=== PATIENT | male | born 1995 | race Caucasian/White ===

== ENCOUNTER 2018-11-30 23:57 | Inpatient (IN) | payer OTHER ==
[~2018-11-30] VITALS: Ht 208.3 cm; Wt 76.2 kg
[2018-12-01] VITALS (7 sets, daily range): BP systolic 119–127; BP diastolic 62–88
[2018-12-01] MEDS ORDERED: OCTREOTIDE ACETATE 50 MCG/ML 1ML IV STA (00:59)
[2018-12-01] MEDS ORDERED: OCTREOTIDE 1,000 MCG in SODIUM CHLORIDE 0.9% 100 ML IV STA (00:59)
[2018-12-01] MEDS ORDERED: PANTOPRAZOLE SODIUM 40 MG/VIAL IV STA (00:59)
[2018-12-01] MEDS ORDERED: SODIUM CHLORIDE 0.9% 1,000 ML IV ONE (00:59)
[2018-12-01] MEDS ORDERED: ONDANSETRON HCL 4MG/2ML INJ IV ONE (01:00)
[2018-12-01 01:34] LABS: BASOPHILS % 0.5 % (0.0-2.0); CHLORIDE 104 mEq/L (98-107); EOSINOPHILS % 3.3 % (0.0-5.0); HEMATOCRIT. 48.7 % (42.0-52.0); HEMOGLOBIN. 16.9 g/dL (14.0-18.0); MEAN CORPUSCULAR HEMOGLOBIN 30.6 pg (28.0-32.0); MEAN CORPUSCULAR VOLUME 88.2 fL (80.0-94.0); MEAN PLATELET VOLUME 8.1 fl (7.4-10.4); MONOCYTES % 5.6 % (2.0-8.0); NEUTROPHILS % 38.6 % (40.0-76.0); PLATELET 261 x1000/uL (130-400); RED BLOOD CELL COUNT 5.53 mill/uL (4.7-6.1); RED CELL DISTRIBUTION WIDTH 13.2 % (11.6-14.6)
[2018-12-01 01:40] LABS: INR 1.1; PROTHROMBIN TIME 10.7 sec (9.1-11.1)
[2018-12-01] MEDS ORDERED: HYDROMORPHONE HCL/PF 2MG/ML CPJ IV PRN (02:30)
[2018-12-01] MEDS ORDERED: LORAZEPAM 2MG/ML CPJ IV PRN (02:30)
[2018-12-01] MEDS ORDERED: ACETAMINOPHEN 650MG SUPP PR PRN (02:30)
[2018-12-01] MEDS ORDERED: ONDANSETRON HCL 4MG/2ML INJ IV PRN (02:30)
[2018-12-01 02:41] LABS: ETHANOL BLOOD 320 mg/dL
[2018-12-01] MEDS ORDERED: OCTREOTIDE 1,000 MCG in SODIUM CHLORIDE 0.9% 100 ML IV SCH (04:00)
[2018-12-01] MEDS ORDERED: PANTOPRAZOLE 80 MG in SODIUM CHLORIDE 0.9% 100 ML IV SCH (04:00)
[2018-12-01] MEDS: DEXT 5%/0.45% NACL KCL 10MEQ/L 1,000 ML IV SCH ×2 (05:00→15:36)
[2018-12-01] MEDS: PANTOPRAZOLE 80 MG in SODIUM CHLORIDE 0.9% 100 ML IV SCH ×2 (05:00→15:37)
[2018-12-02] VITALS (8 sets, daily range): BP systolic 98–132; BP diastolic 50–89
[2018-12-02] MEDS: PANTOPRAZOLE 80 MG in SODIUM CHLORIDE 0.9% 100 ML IV SCH ×2 (00:21→10:18)
[2018-12-02] MEDS: DEXT 5%/0.45% NACL KCL 10MEQ/L 1,000 ML IV SCH ×2 (02:34→10:18)
[2018-12-02 05:59] LABS: BASOPHILS % 0.6 % (0.0-2.0); HEMATOCRIT. 45.8 % (42.0-52.0); HEMOGLOBIN. 15.8 g/dL (14.0-18.0); LYMPHOCYTES % 31.4 % (20.0-50.0); MEAN CORPUSCULAR HEMOGLOBIN 30.4 pg (28.0-32.0); MONOCYTES % 8.2 % (2.0-8.0); NEUTROPHILS % 56.8 % (40.0-76.0); PLATELET 237 x1000/uL (130-400); RED CELL DISTRIBUTION WIDTH 13.6 % (11.6-14.6)
== END 2018-12-02 17:40 | disposition left against medical advice (07) | DRG 379 ==
LOC: EDBD 23:57 → ER 23:57 → CANBEDREQ 12-01 01:57 → 5EST 12-01 01:59 → SUPCPDRO 12-01 02:27 → ENRESERV 12-01 05:11
PROVIDERS: ADMIT Hospitalist; ATTEND Hospitalist
DX: K92.2 Gastrointestinal hemorrhage, unspecified (principal); F10.129 Alcohol abuse with intoxication, unspecified; Z53.21 Procedure and treatment not carried out due to patient leaving prior to being seen by health care provider
CPT/HCPCS: 36415; 71045; 80320; 82962; 83605; 86850; 86900; 96365; 96375; 99291; C9113; J2354; J2405; J7030; J7050; G0480